=== PATIENT | female | born 1990 | race Caucasian/White ===

== ENCOUNTER 2017-08-01 21:41 | Emergency (ER) | payer BC, OTHER ==
--- NOTE | 2017-08-01 23:31 | RADIOLOGY REPORT (SQ) ---
EXAM DESCRIPTION: HAND RIGHT 3 VIEWS COMPLETED DATE/TIME: 08/01/2017 11:09 pm REASON FOR STUDY: pain COMPARISON: None. EXAM PARAMETERS: NUMBER OF VIEWS: Three views. TECHNIQUE: AP, lateral and oblique radiographic images acquired of the right hand. LIMITATIONS: None. FINDINGS: MINERALIZATION: Normal. BONES: No acute fracture or dislocation. No worrisome bone lesions. JOINTS: No effusions. SOFT TISSUES: No soft tissue swelling. No foreign body. OTHER: No other significant finding. IMPRESSION: NEGATIVE STUDY OF THE RIGHT HAND. NO RADIOGRAPHIC EVIDENCE OF ACUTE INJURY. TECHNICAL DOCUMENTATION: JOB ID: [id number] [employer]- All Rights Reserved Reading location - IP/workstation name: [email or web address]
--- NOTE | 2017-08-01 23:31 | RADIOLOGY REPORT (SQ) ---
EXAM DESCRIPTION: WRIST RIGHT 3 VIEWS COMPLETED DATE/TIME: 08/01/2017 11:09 pm REASON FOR STUDY: pain COMPARISON: None. NUMBER OF VIEWS: Three views. TECHNIQUE: AP, lateral, and oblique radiographic images acquired of the right wrist. LIMITATIONS: None. FINDINGS: MINERALIZATION: Normal. BONES: No acute fracture or dislocation. No worrisome bone lesions. Normal alignment. SOFT TISSUES: No soft tissue swelling. No foreign body. OTHER: No other significant finding. IMPRESSION: NEGATIVE STUDY OF THE RIGHT WRIST. NO RADIOGRAPHIC EVIDENCE OF ACUTE INJURY. TECHNICAL DOCUMENTATION: JOB ID: [id number] [employer]- All Rights Reserved Reading location - IP/workstation name: [email or web address]
--- NOTE | 2017-08-02 00:59 | ER Document Report ---
HPI - HPI Pain Level: 2 Notes: Patient is a 27-year-old female no significant past medical history who presents to the ED complaining of right anterior hand pain status post injury 3 days ago. Patient states that she hit a door with her hand on accident at that time. Patient states that she did not have any immediate pain, but started noticing some swelling and some pain thereafter. She has not been taking any medicines for her symptoms. The pain does not radiate. She is still able to use her hand to perform ADLs only difficulties otherwise. No other concerns or complaints. Denies any headache, fever, neck pain, URI, sore throat, chest pain , palpitations, syncope, cough, shortness of breath, wheeze, dyspnea, abdominal pain, nausea/vomiting/diarrhea, urinary retention, dysuria, hematuria, numbness/ tingling, muscle paralysis/weakness, or rash. - ROS Systems Reviewed and Negative: Yes All other systems reviewed and negative - CONSTITUTIONAL Constitutional: DENIES: Fever, Chills - MUSCULOSKELETAL Musculoskeletal: REPORTS: Extremity pain - R wrist Past Medical History - Social History Smoking Status: Unknown if Ever Smoked Family History: Reviewed & Not Pertinent Patient has suicidal ideation: No Patient has homicidal ideation: No Renal/ Medical History: Denies: Hx Peritoneal Dialysis Vertical Provider Document - CONSTITUTIONAL Agree With Documented VS: Yes Notes: PHYSICAL EXAMINATION: GENERAL: Well-appearing, well-nourished and in no acute distress. LUNGS: Breath sounds clear to auscultation bilaterally and equal. No wheezes rales or rhonchi. HEART: Regular rate and rhythm without murmurs, rubs, gallops. Musculoskeletal: Rt hand/wrist: FROM to passive/active. Strength 5+/5. N/V intact distal. + mild tenderness to the anterolateral hand. Gamekeeper negative. + mild swelling to that area as well. No scaphoid tenderness. No other bony tenderness of the hand/wrist. Extremities: No cyanosis, clubbing, or edema b/l. Peripheral pulses 2+. Capillary refill less than 3 seconds. NEUROLOGICAL: Normal speech, normal gait. Normal sensory, motor exams PSYCH: Normal mood, normal affect. SKIN: Warm, Dry, normal turgor, no rashes or lesions noted. - INFECTION CONTROL TRAVEL OUTSIDE OF THE [place] IN LAST 30 DAYS: No Course - Re-evaluation Re-evalutation: 08/02/17 00:58 Patient is an afebrile, well-hydrated, 27-year-old female who presents to the ED with right hand pain anteriorly, suspect contusion. Vitals are acceptable. PE is otherwise unremarkable for any neurovascular compromise, obvious tendon/ ligament rupture, obvious fracture/dislocation, septic joint. X-rays were unremarkable for any acute pathology. Cockup wrist splint provided today. Conservative measures otherwise for symptoms. Recheck with your PCM in 3-5 days. Consider consult orthopedic/physical therapy. Return to the ED with any worsening/concerning symptoms otherwise as reviewed discharge. Patient is in agreement. Discharge - Discharge Clinical Impression: Right hand pain Condition: Stable Disposition: HOME, SELF-CARE Instructions: Contusion ([facility]) Additional Instructions: Rest, Ice, Compression, Elevation Use splint as directed Tylenol/ibuprofen as needed Light stretches daily Strength exercises as able Moist heat and massage may help F/u with your PCP in 3-5 days for a recheck Consider consult(s) with Orthopedics/physical therapy for ongoing/worsening symptoms Return to the ED with any worsening symptoms and/or development of fever, headache, chest pain, palpitations, syncope, shortness of breath, trouble breathing, abdominal pain, n/v/d, muscle weakness/paralysis, numbness/tingling, swelling, redness, or other worsening symptoms that are concerning to you. Referrals: [facility] ([facility]) [Provider Group] - Follow up as needed
[2017-08-02 01:32] VITALS: BP 103/60
== END 2017-08-02 01:31 | disposition home or self-care (01) ==
LOC: ER 21:41
DX: M79.641 Pain in right hand (principal); M79.89 Other specified soft tissue disorders; M25.531 Pain in right wrist; W22.8XXA Striking against or struck by other objects, initial encounter
CPT/HCPCS: 99283; 73130; 73110; L3908

== ENCOUNTER 2018-05-27 00:53 | Outpatient (CLI) | payer MEDICAID ==
[2018-05-27 01:36] LABS: APPEARANCE,URINE SLIGHTLY-CLOUDY; BILIRUBIN,URINE NEGATIVE (NEGATIVE); COLOR,URINE YELLOW; GLUCOSE, URINE NEGATIVE (NEGATIVE); KETONES,URINE NEGATIVE (NEGATIVE); LEUKOCYTE ESTERASE,URINE LARGE (NEGATIVE); NITRITE,URINE NEGATIVE (NEGATIVE); PROTEIN,URINE NEGATIVE (NEGATIVE); URINE SPECIFIC GRAVITY 1.011; UROBILINOGEN,URINE NEGATIVE mg/dL (<2.0)
[2018-05-27 02:04] LABS: URINE AMPHETAMINES SCREEN NEGATIVE; URINE BARBITURATES SCREEN NEGATIVE; URINE BENZODIAZEPINES SCREEN NEGATIVE; URINE COCAINE SCREEN NEGATIVE; URINE MARIJUANA (THC) SCREEN NEGATIVE; URINE METHADONE SCREEN NEGATIVE; URINE PHENCYCLIDINE SCREEN NEGATIVE
--- NOTE | 2018-05-27 03:57 | Non Stress Test Report ---
Non Stress Test Datetime Report Generated by CPN: 05/27/2018 03:57 DEMOGRAPHIC Test Number: 1 EGA NST: 38.1 INDICATION Indication for Study: Ordered by Provider Indication for Study (NST) Other: LC URINE RESULTS Urine Protein, NST: Negative Urine Ketones - NST: Negative Urine Glucose - NST: Negative Urine Blood - NST: Positive MONITORING Monitor Explained: Monitor Explained; Test Explained; Patient Verbalized Understanding Time on Monitor: 05/27/2018 03:33 Time off Monitor: 05/27/2018 03:54 NST Duration: 21 NST INTERVENTIONS NST Interventions: PO Hydration Physician Notified NST: Hair BABY A: [id number] BABY A Movement : Present Contraction Frequency : 2-4 FHR Baseline : 125 Accelerations : 15X15 Variability : Moderate 6-25bpm NST Review: Meets Criteria for Reactive NST NST Review and Verified By : BI Barba NST Results: Reactive NST REPORT Report Trigger: Send Report
== END 2018-05-27 04:05 | disposition home or self-care (01) ==
LOC: LC 00:53
PROVIDERS: ATTEND Obstetrics & Gynecology
PROC: 4A1HXCZ Monitoring of Products of Conception, Cardiac Rate, External Approach (ICD-10-PCS; principal; 2018-05-27)
DX: O47.1 False labor at or after 37 completed weeks of gestation (principal); Z3A.38 38 weeks gestation of pregnancy
CPT/HCPCS: 59025; 80307; 81005

== ENCOUNTER 2018-06-06 23:16 | Inpatient (IN) | payer MEDICAID ==
[2018-06-06 23:49] LABS: APPEARANCE,URINE SLIGHTLY-CLOUDY; BILIRUBIN,URINE NEGATIVE (NEGATIVE); COLOR,URINE YELLOW; GLUCOSE, URINE NEGATIVE (NEGATIVE); KETONES,URINE 80 mg/dL (NEGATIVE); LEUKOCYTE ESTERASE,URINE MODERATE (NEGATIVE); NITRITE,URINE NEGATIVE (NEGATIVE); PROTEIN,URINE NEGATIVE (NEGATIVE); URINE SPECIFIC GRAVITY 1.021
[2018-06-07 00:11] LABS: URINE AMPHETAMINES SCREEN NEGATIVE; URINE BARBITURATES SCREEN NEGATIVE; URINE BENZODIAZEPINES SCREEN NEGATIVE; URINE COCAINE SCREEN NEGATIVE; URINE MARIJUANA (THC) SCREEN NEGATIVE; URINE METHADONE SCREEN NEGATIVE; URINE PHENCYCLIDINE SCREEN NEGATIVE
[2018-06-07] MEDS ORDERED: RINGERS SOLUTION,LACTATED 1,000 ML IV PRN (00:43)
[2018-06-07] MEDS ORDERED: OXYTOCIN 10 UNIT/ML VIAL ONE (00:47)
[2018-06-07] MEDS ORDERED: MISOPROSTOL 0.2 MG TABLET ONE (00:47)
[2018-06-07] MEDS ORDERED: LIDOCAINE 1% INJ-PF (10 MG/ML) 30 ML SDV ONE (00:48)
[2018-06-07] MEDS ORDERED: OXYTOCIN/NORMAL SALINE 20 UNIT/1,000 ML RTUINJ ONE (00:48)
[2018-06-07] MEDS ORDERED: FENTANYL/BUPIVACAINE/NS/PF 300 MCG/150 ML RTUINJ EPI ONE (00:50)
[2018-06-07] MEDS ORDERED: BUPIVACAINE HCL 0.25 % INJ/PF (2.5 MG/1 ML) 30 ML VIAL ONE (00:50)
[2018-06-07] MEDS ORDERED: EPHEDRINE SULFATE INJ 50 MG/1 ML AMPULE ONE (00:50)
[2018-06-07 01:00] LABS: ABSOLUTE BASOPHILS # (AUTO) 0.1 10^3/uL (0.0-0.2); ABSOLUTE EOSINOPHILS # (AUTO) 0.1 10^3/uL (0.0-0.6); ABSOLUTE LYMPHOCYTES (AUTO) 2.1 10^3/uL (0.5-4.7); ABSOLUTE MONOCYTES (AUTO) 0.7 10^3/uL (0.1-1.4); ABSOLUTE NEUT (AUTO) 9.4 10^3/uL (1.7-8.2); BASOPHILS % (AUTO) 0.5 % (0-2); EOSINOPHILS % (AUTO) 0.4 % (0-6); HEMOGLOBIN 10.3 g/dL (12.0-15.5); LYMPHOCYTES % (AUTO) 17.3 % (13-45); MEAN CORPUSCULAR HEMOGLOBIN 26.9 pg (27.0-33.4); MEAN CORPUSCULAR HGB CONC 33.4 g/dL (32.0-36.0); MEAN CORPUSCULAR VOLUME 81 fl (80-97); MONOCYTES % (AUTO) 5.6 % (3-13); PLATELET COUNT 201 10^3/uL (150-450); RED BLOOD COUNT 3.84 10^6/uL (3.72-5.28); RED CELL DISTRIBUTION WIDTH 22.2 % (11.5-14.0); SEGMENTED NEUTROPHILS % (AUTO) 76.2 % (42-78); TOTAL CELLS COUNTED % (AUTO) 100 %; WHITE BLOOD COUNT 12.4 10^3/uL (4.0-10.5)
--- NOTE | 2018-06-07 03:13 | Admission Physical ---
Datetime Report Generated by CPN: 06/07/2018 03:13 CURRENT ADMISSION Chief Complaint: Uterine Contractions Indication for Induction: Not Applicable Admit Impression : Term, Intrauterine ; Active Labor Admit Plan: Admit to Unit; Initiate Labor Protocol ALLERGIES Medication Allergies: Yes Medication Allergies: diphenhydramine (06/06/2018); nickel (06/06/2018) Latex: Unknown OBSTETRICAL HISTORY EDC: 06/09/2018 00:00 : 3 Para: 2 Term: 2 : 0 SAB: 0 IAB: 0 Ectopic: 0 Livin Cesareans: 0 VBACs: 0 Multiple Births: 0 Gestational Diabetes: No Rh Sensitization: No Incompetent Cervix: No MARYANNE: No Infertility: No ART Treatment: No Uterine Anomaly: No IUGR: No Hx Previous C/S: No Macrosomia: No Hx Loss/Stillborn: No PIH: No Hx : No Placenta Previa/Abruption: No Depression/PP Depression: Yes PTL/PROM: No Post Hemorrhage: No Current Procedures: Ultrasound Obstetrical History Comments: G1- 2014 at 39 weeks, 8lbs 3oz male G2- 2017 at 41 weeks, 8lbs 11oz male G3- current SEE RECORDS Alcohol: No Marijuana : No Cocaine: No Other Illicit Drugs: No Cigarettes: Former Smoker. [id number] MEDICAL HISTORY Diabetes: No Blood Transfusion: No Pulmonary Disease (Asthma, TB): No Breast Disease: No Hypertension: No Medical Pathologist Surgery: No Heart Disease: No Hosp/Surgery: No Autoimmune Disorder: No Anesthetic Complications: No Kidney Disease: No Abnormal Pap Smear: No Neuro/Epilepsy: No Psychiatric Disorders: No Other Medical Diseases: No Hepatitis/Liver Disease: No Significant Family History: No Varicosities/Phlebitis: No Trauma/Violence : No Thyroid Dysfunction: No Medical History Comments: Exercise Induced Asthma, Anemia, hx of depression INFECTIOUS HISTORY Gonorrhea: No Genital Herpes: No Chlamydia: No Tuberculosis: No Syphilis: No Hepatitis: No HIV/AIDS Exposure: No Rash or Viral Illness: No HPV: No PHYSICAL EXAM General: Normal HEENT: Normal Neurologic: Normal Thyroid: Normal Heart: Normal Lungs: Normal Breast: Normal Back: Normal Abdomen: Normal Genitourinary Exam: Normal Extremities: Normal DTRs: Normal Pelvic Type: Adequate Vital Signs: Reviewed VAGINAL EXAM Dilatation: 5 Effacement: 80 Station: -1 MEMBRANES Pooling: Negative Membranes: Intact FETUS A EGA: 39.4 Monitoring: External US FHR- Baseline: 130 Variability: Moderate 6-25bpm Accelerations: 15X15 Decelerations: None FHR Category: Category I Estimated Weight (gm): 3500 Presentation: Vertex PLANS FOR LABOR AND DELIVERY Labor and Delivery: None Pain Management: Epidural Feeding Preference: Breast Benefit of Breast Feed Discussed: Yes Circumcision: N/A INFORMED CONSENT Signature: with User ID: Mario
[2018-06-07] MEDS ORDERED: OXYTOCIN/NORMAL SALINE 20 UNIT/1,000 ML RTUINJ IV PRN (03:18)
[2018-06-07] MEDS ORDERED: DIPHENHYDRAMINE HCL 25 MG CAPSULE PO PRN (03:18)
[2018-06-07] MEDS ORDERED: PROMETHAZINE HCL 25 MG TABLET PO PRN (03:18)
[2018-06-07] MEDS ORDERED: PROMETHAZINE HCL INJ 25 MG/1 ML VIAL IV PRN (03:18)
[2018-06-07] MEDS ORDERED: BENZOCAINE/MENTHOL AEROSOL SPRAY 56 ML TOP PRN (03:18)
[2018-06-07] MEDS ORDERED: PROMETHAZINE HCL 25 MG SUPP.RECT PR PRN (03:18)
[2018-06-07] MEDS ORDERED: DIPH/PERTUSS(ACELL)/TETANUS VAC/PF 0.5 ML SYR (>=10YO) IM PRN (03:18)
[2018-06-07] MEDS ORDERED: NA PHOS,M-B/NA PHOS,DI-BA (ADULT) 133 ML ENEMA PR PRN (03:18)
[2018-06-07] MEDS ORDERED: MEASLES,MUMPS&RUBELLA VACC/PF 0.5 ML VIAL SUBCUT PRN (03:18)
[2018-06-07] MEDS ORDERED: DIBUCAINE 1% OINTMENT 56 GM TP PRN (03:18)
[2018-06-07] MEDS ORDERED: ACETAMINOPHEN WITH CODEINE #3 TABLET PO PRN ×2 (03:18)
[2018-06-07] MEDS ORDERED: ACETAMINOPHEN 650 MG SUPP.RECT PR PRN (03:18)
[2018-06-07] MEDS ORDERED: MAGNESIUM HYDROXIDE SUSP 30 ML UDCUP PO PRN (03:18)
[2018-06-07] MEDS ORDERED: ZOLPIDEM TARTRATE 5 MG TABLET PO PRN (03:18)
[2018-06-07] MEDS ORDERED: PSEUDOEPHEDRINE HCL 30 MG TABLET PO PRN (03:18)
[2018-06-07] MEDS ORDERED: GLYCERIN/WITCH HAZEL LEAF 1 EACH MED..PAD TP PRN (03:18)
--- NOTE | 2018-06-07 03:26 | Warning Signs in Babies ---
VOD Warning Signs Datetime Report Generated by [facility]: 06/07/2018 03:26 VOD#608 -Warning Signs in Babies: Needs to be viewed. (05/27/2018 00:58:Susy Blair RN)
--- NOTE | 2018-06-07 04:11 | Delivery Summary ---
Del Sum A-C Datetime Report Generated by CPN: 06/07/2018 04:11 DELIVERY PERSONNEL DELIVERY PERSONNEL: [id number] Delivery Doctor:: Adriana Bermeo MD Labor and Delivery Nurse:: Susy Blair RNemissions technician Nurse:: Sydney Sow RN Bar Examiner:: Ailin Behzad, RN MATERNAL INFORMATION Delivery Anesthesia: Epidural Medications After Delivery: Pitocin Drip 20 Units/1000ml NSS Estimated Blood Loss (ml): 100 Maternal Complications: None LABOR SUMMARY EDC: 06/09/2018 00:00 No. Babies in Womb: 1 Attempted: No Labor Anesthesia: Epidural LABOR INFORMATION Reason for Induction: Not Applicable Onset of Labor: 06/06/2018 20:45 Complete Dilatation: 06/07/2018 02:56 Oxytocin: N/A Group B Beta Strep: Negative Steroids Given: None Reason Steroids Not Administered: Not Applicable MEMBRANES Membranes Rupture Method: Spontaneous Rupture of Membranes: 06/07/2018 02:55 Length of Rupture (hr): 0.15 Amniotic Fluid Color: Clear Amniotic Fluid Amount: Small Amniotic Fluid Odor: Normal STAGES OF LABOR Stage 1 hr: 6 Stage 1 min: 11 Stage 2 hr: 0 Stage 2 min: 8 Stage 3 hr: 0 Stage 3 min: 4 Total Time in Labor hr: 6 Total Time in Labor min: 23 VAGINAL DELIVERY Episiotomy: None Laceration #1: None Laceration Extension #1: N/A Laceration Repair: Not Applicable Sponge Count Correct: N/A CSECTION DELIVERY Primary Indication: N/A Secondary Indication: N/A CSection Incision: N/A BABY A INFORMATION Infant Delivery Date/Time: 06/07/2018 03:04 Method of Delivery: Vaginal Born in Route : No : N/A Forceps: N/A Vacuum Extraction: N/A Shoulder Dystocia : No PRESENTATION/POSITION BABY A Presentation: Cephalic Cephalic Presentation: Vertex Vertex Position: OA Breech Presentation: N/A PLACENTA INFORMATION BABY A Placenta Delivery Time : 06/07/2018 03:08 Placenta Method of Delivery: Spontaneous Placenta Status: Delivered SCORES BABY A Heart Rate 1 min: >100 bpm Resp Effort 1 min: Good Cry Reflex Irritability 1 min: Cough or Sneeze or Pulls Away Muscle Tone 1 min: Active Motion Color 1 min: Body Guy, Extremities Blue Resuscitation Effort 1 min: Tactile Stimulation SCORE 1 MIN: 9 Heart Rate 5 min: >100 bpm Resp Effort 5 min: Good Cry Reflex Irritability 5 min: Cough or Sneeze or Pulls Away Muscle Tone 5 min: Active Motion Color 5 min: Body Guy, Extremities Blue Resuscitation Effort 5 min: Tactile Stimulation SCORE 5 MIN: 9 INFORMATION BABY A Gestational Age at Delivery: 39.5 Gestational Status: Full Term- 39- 40.6 Weeks Infant Outcome : Liveborn Condition : Stable Sex: Female IDENTIFICATION BABY A Infant Verification Date/Time: 06/07/2018 03:55 ID Band Number: [id number] Mother's Name Verified: Yes RN Verifying Infant: Concha, RN Additional Verifying Personnel: B. Ring, RN WEIGHT/LENGTH BABY A Birthweight (gm): 3464 Infant Weight (lb): 7 Weight (oz): 10 Infant Length (in): 20.00 Length (cm): 50.80 CORD INFORMATION BABY A No. Cord Vessels: 3 Nuchal Cord : N/A Cord Blood Taken: Yes-For Eval (Mom's Blood Type - or O+) Suction: Mouth ASSESSMENT BABY A Skin to Skin: Yes Skin to Skin Time (min): 30+ BABY B INFORMATION : N/A SIGNATURES Signature: with User ID: Mario
[2018-06-07] MEDS: IBUPROFEN 800 MG TABLET PO SCH ×3 (05:40→22:16)
[2018-06-07] MEDS: DOCUSATE SODIUM 100 MG CAPSULE PO SCH ×2 (10:17→17:18)
[2018-06-07] MEDS: FERROUS SULFATE 325 MG TABLET PO SCH ×2 (10:17→17:18)
[2018-06-07] MEDS: FAMOTIDINE 20 MG TABLET PO SCH ×2 (10:17→22:15)
[2018-06-07] MEDS: PRENATAL VITAMIN W DHA CAPSULE PO SCH (10:17)
[2018-06-07] MEDS: SENNOSIDES/DOCUSATE 8.6-50 MG 1 EACH TABLET PO SCH (10:17)
--- NOTE | 2018-06-07 11:41 | PDOC PROGRESS REPORT ---
Subjective-OB Progress Note for:: 06/07/18 Subjective: Pt doing well. No concerns. She reports light bleeding, reg diet and voiding without difficulty. Physical Exam (OB) Vital Signs: Temp Pulse Resp BP Pulse Ox 98.4 F 77 18 102/57 L 98 06/07/18 08:17 06/07/18 08:17 06/07/18 08:17 06/07/18 08:17 06/07/18 08:17 Intake & Output 06/06/18 06/07/18 06/08/18 06:59 06:59 06:59 Weight 67.2 kg - Lochia Lochia Amount: Small 10-25 ml Lochia Color: Rubra/Red - Abdomen Description: Soft Hernia Present: No Fundal Description: Firm, Midline Fundal Height: u/3 - u/4 Objective-Diagnostic Laboratory: 06/07/18 00:50 06/06/18 06/07/18 06/07/18 23:22 00:50 00:50 WBC 12.4 H RBC 3.84 Hgb 10.3 L Hct 31.0 L MCV 81 MCH 26.9 L MCHC 33.4 RDW 22.2 H Plt Count 201 Seg Neutrophils % 76.2 Lymphocytes % 17.3 Monocytes % 5.6 Eosinophils % 0.4 Basophils % 0.5 Absolute Neutrophils 9.4 H Absolute Lymphocytes 2.1 Absolute Monocytes 0.7 Absolute Eosinophils 0.1 Absolute Basophils 0.1 Urine Color YELLOW Urine Appearance SLIGHTLY-CLOUDY Urine pH 6.0 Ur Specific [place] 1.021 Urine Protein NEGATIVE Urine Glucose (UA) NEGATIVE Urine Ketones 80 H Urine Blood NEGATIVE Urine Nitrite NEGATIVE Ur Leukocyte Esterase MODERATE H Blood Type O POSITIVE Antibody Screen NEGATIVE Assessment and Plan(PN) - Assessment and Plan (1) Vaginal delivery Is this a current diagnosis for this admission?: Yes - Time Spent with Patient Time with patient: Less than 15 minutes Medications reviewed and adjusted accordingly: Yes - Disposition Anticipated Discharge: Home Within: within 24 hours
[2018-06-08] MEDS: IBUPROFEN 800 MG TABLET PO SCH ×2 (05:19→14:32)
[2018-06-08 08:02] LABS: ABSOLUTE EOSINOPHILS # (AUTO) 0.1 10^3/uL (0.0-0.6); ABSOLUTE MONOCYTES (AUTO) 0.6 10^3/uL (0.1-1.4); ABSOLUTE NEUT (AUTO) 7.1 10^3/uL (1.7-8.2); BASOPHILS % (AUTO) 0.5 % (0-2); EOSINOPHILS % (AUTO) 1.5 % (0-6); HEMATOCRIT 28.6 % (36.0-47.0); HEMOGLOBIN 9.6 g/dL (12.0-15.5); LYMPHOCYTES % (AUTO) 20.4 % (13-45); MEAN CORPUSCULAR HEMOGLOBIN 27.2 pg (27.0-33.4); MEAN CORPUSCULAR HGB CONC 33.5 g/dL (32.0-36.0); MEAN CORPUSCULAR VOLUME 81 fl (80-97); MONOCYTES % (AUTO) 6.4 % (3-13); PLATELET COUNT 178 10^3/uL (150-450); RED BLOOD COUNT 3.52 10^6/uL (3.72-5.28); RED CELL DISTRIBUTION WIDTH 22.2 % (11.5-14.0); SEGMENTED NEUTROPHILS % (AUTO) 71.2 % (42-78); TOTAL CELLS COUNTED % (AUTO) 100 %
[2018-06-08] MEDS: DOCUSATE SODIUM 100 MG CAPSULE PO SCH ×2 (10:14→18:46)
[2018-06-08] MEDS: PRENATAL VITAMIN W DHA CAPSULE PO SCH (10:14)
[2018-06-08] MEDS: FERROUS SULFATE 325 MG TABLET PO SCH ×2 (10:14→18:45)
[2018-06-08] MEDS: SENNOSIDES/DOCUSATE 8.6-50 MG 1 EACH TABLET PO SCH (10:16)
[2018-06-08] MEDS: FAMOTIDINE 20 MG TABLET PO SCH (10:16)
--- NOTE | 2018-06-08 10:27 | PDOC PROGRESS REPORT ---
Subjective-OB Progress Note for:: 06/08/18 Subjective: Pt doing well, no concerns. She reports light bleeding, reg diet and voiding without difficulty. Physical Exam (OB) Vital Signs: Temp Pulse Resp BP Pulse Ox 98.4 F 81 16 102/72 100 06/07/18 08:17 06/08/18 08:20 06/08/18 08:20 06/08/18 08:20 06/08/18 08:20 Intake & Output 06/07/18 06/08/18 06/09/18 06:59 06:59 06:59 Intake Total 300 Balance 300 Weight 67.2 kg - Lochia Lochia Amount: Scant < 10 ml Lochia Color: Rubra/Red - Abdomen Description: Soft Hernia Present: No Fundal Description: Firm, Midline Fundal Height: u/u - u/2 Objective-Diagnostic Laboratory: 06/08/18 07:53 06/08/18 07:53 WBC 10.0 RBC 3.52 L Hgb 9.6 L Hct 28.6 L MCV 81 MCH 27.2 MCHC 33.5 RDW 22.2 H Plt Count 178 Seg Neutrophils % 71.2 Lymphocytes % 20.4 Monocytes % 6.4 Eosinophils % 1.5 Basophils % 0.5 Absolute Neutrophils 7.1 Absolute Lymphocytes 2.0 Absolute Monocytes 0.6 Absolute Eosinophils 0.1 Absolute Basophils 0.0 Assessment and Plan(PN) - Assessment and Plan (1) Vaginal delivery Is this a current diagnosis for this admission?: Yes - Time Spent with Patient Time with patient: Less than 15 minutes Medications reviewed and adjusted accordingly: Yes - Disposition Anticipated Discharge: Home Within: within 24 hours
--- NOTE | 2018-06-08 16:52 | PDOC DISCHARGE SUMMARY ---
Final Diagnosis Discharge Date: 06/08/18 - Final Diagnosis (1) Vaginal delivery Is this a current diagnosis for this admission?: Yes Discharge Data - Discharge Medication Home Medications: Vit,Calc76/Iron/Folic [Pnv 29-1 Tablet] 1 each PO 06/06/18 Reason(s) for Admission: Onset of Labor Procedures: NST Intrapartum Procedure(s): Spontaneous Vaginal Delivery - Diagnosis Test Laboratory: Temp Pulse Resp BP Pulse Ox 98.4 F 81 16 102/72 100 06/08/18 12:28 06/08/18 12:28 06/08/18 12:28 06/08/18 12:28 06/08/18 12:28 06/06/18 06/07/18 06/08/18 23:22 00:50 07:53 RBC 3.84 3.52 L Hgb 10.3 L 9.6 L Hct 31.0 L 28.6 L Urine Opiates Screen NEGATIVE - Discharge information/Instructions Discharge Activity: Balance Activity w/Rest, No Lifting Over 10 Pounds, No Lifting/Push/Pulling, Pelvic Rest, No tub bath Discharge Diet: Regular Disposition: HOME, SELF-CARE Follow up with: [facility] in: 4, Weeks
[2018-06-09 00:26] VITALS: BP 116/74
[2018-06-10 09:48] LABS: HEPATITS B SURFACE ANTIGEN Negative (Negative)
== END 2018-06-08 22:39 | disposition home or self-care (01) | DRG 807 ==
LOC: LC 23:16 → LR 06-07 00:44 → 2S 06-07 05:20
PROVIDERS: ADMIT Obstetrics & Gynecology; ATTEND Obstetrics & Gynecology
PROC: 10E0XZZ Delivery of Products of Conception, External Approach (ICD-10-PCS; principal; 2018-06-07)
DX: O99.52 Diseases of the respiratory system complicating childbirth (principal); Z37.0 Single live birth; J45.909 Unspecified asthma, uncomplicated; Z3A.39 39 weeks gestation of pregnancy
CPT/HCPCS: 36415; 80307; 81005; 84112; 85025; 86592; 86850; 86900; 86901; 87340; J2590; J3010; J3490

== ENCOUNTER 2019-02-11 07:17 | Day surgery (SDC) | payer BC, MEDICAID ==
[~2019-02-11 07:17] MED LIST: FENTANYL CITRATE INJ/PF 100 MCG/2 ML AMPUL ONE; MIDAZOLAM 2 MG/2 ML INJ ONE; PROPOFOL INJ 200 MG/20 ML VIAL IV ONE
[2019-02-11] MEDS ORDERED: CEFAZOLIN INJ 1 GM VIAL ONE (07:41)
[2019-02-11] MEDS ORDERED: CEFAZOLIN INJ 1 GM VIAL IV PRN (07:42)
[2019-02-11 08:15] LABS: APPEARANCE,URINE SLIGHTLY-CLOUDY; BILIRUBIN,URINE NEGATIVE (NEGATIVE); COLOR,URINE YELLOW; GLUCOSE, URINE NEGATIVE (NEGATIVE); KETONES,URINE NEGATIVE (NEGATIVE); LEUKOCYTE ESTERASE,URINE NEGATIVE (NEGATIVE); NITRITE,URINE NEGATIVE (NEGATIVE); PROTEIN,URINE NEGATIVE (NEGATIVE); URINE SPECIFIC GRAVITY 1.021; UROBILINOGEN,URINE NEGATIVE mg/dL (<2.0)
[2019-02-11 08:44] LABS: ABSOLUTE BASOPHILS # (AUTO) 0.1 10^3/uL (0.0-0.2); ABSOLUTE EOSINOPHILS # (AUTO) 0.1 10^3/uL (0.0-0.6); ABSOLUTE LYMPHOCYTES (AUTO) 2.6 10^3/uL (0.5-4.7); ABSOLUTE MONOCYTES (AUTO) 0.4 10^3/uL (0.1-1.4); ABSOLUTE NEUT (AUTO) 3.6 10^3/uL (1.7-8.2); EOSINOPHILS % (AUTO) 1.4 % (0-6); HEMATOCRIT 36.5 % (36.0-47.0); HEMOGLOBIN 12.6 g/dL (12.0-15.5); LYMPHOCYTES % (AUTO) 38.3 % (13-45); MEAN CORPUSCULAR HEMOGLOBIN 29.9 pg (27.0-33.4); MEAN CORPUSCULAR HGB CONC 34.5 g/dL (32.0-36.0); MEAN CORPUSCULAR VOLUME 87 fl (80-97); MONOCYTES % (AUTO) 5.7 % (3-13); PLATELET COUNT 323 10^3/uL (150-450); RED BLOOD COUNT 4.21 10^6/uL (3.72-5.28); RED CELL DISTRIBUTION WIDTH 14.3 % (11.5-14.0); SEGMENTED NEUTROPHILS % (AUTO) 53.6 % (42-78); TOTAL CELLS COUNTED % (AUTO) 100 %; WHITE BLOOD COUNT 6.8 10^3/uL (4.0-10.5)
[2019-02-11] MEDS ORDERED: MIDAZOLAM 2 MG/2 ML INJ ONE (09:33)
[2019-02-11] MEDS ORDERED: MORPHINE SULFATE 10 MG/ML INJ IV PRN (11:50)
[2019-02-11] MEDS ORDERED: ONDANSETRON HCL INJ/PF 4 MG/2 ML SDV IV PRN (11:50)
[2019-02-11] MEDS ORDERED: MEPERIDINE HCL/PF INJ 25 MG/1 ML DISP.SYRIN IV PRN (11:50)
[2019-02-11] MEDS ORDERED: FENTANYL CITRATE INJ/PF 100 MCG/2 ML AMPUL IV PRN ×3 (11:50)
[2019-02-11] MEDS ORDERED: OXYCODONE-ACETAMINOPHEN 5-325 MG TABLET PO PRN ×2 (11:50)
--- NOTE | 2019-02-11 12:12 | Operative Report ---
Operative Report DATE OF SURGERY: 02/11/19 PREOPERATIVE DIAGNOSIS: missed POSTOPERATIVE DIAGNOSIS: same OPERATION: suction D&C SURGEON: DAWNA MCKEON 1ST SILVICULTURE PROFESSOR: REMY MAJOR ANESTHESIA: LMAC TISSUE REMOVED OR ALTERED: Products of conception COMPLICATIONS: None ESTIMATED BLOOD LOSS: 50 cc INTRAOPERATIVE FINDINGS: Uterus sounded to approximately 8 cm, moderate amount of tissue obtained PROCEDURE: Patient was taken to the operating room prepared and draped in a normal sterile fashion in a dorsal lithotomy position. An in and out cath was performed of approximately 100 cc of clear urine. Sterile speculum was placed into the vagina and the cervix was prepped with Betadine and grasped on the anterior lip with a single-tooth tenaculum. The uterus was sounded to the above findings. The cervix was dilated to accommodate an 8 mm curved curette. The curved curette was passed x3 under suction and a small amount of decidual type tissue was removed. Curettage was performed using Kevorkian curette. Good great was noted 360 degrees around. More pass with the suction curette no further tissue. The procedure was then concluded Metzenbaums were removed sponge lap and needle counts were correct x2. She was taken to recovery in stable condition
[2019-02-11] MEDS ORDERED: IBUPROFEN 800 MG TABLET ONE (12:58)
[2019-02-11] MEDS ORDERED: ONDANSETRON HCL INJ/PF 4 MG/2 ML SDV ONE (14:17)
[2019-02-11] MEDS ORDERED: DEXAMETHASONE SOD PHOSPHATE INJ 4 MG/1 ML VIAL ONE (14:17)
[2019-02-11] MEDS ORDERED: KETOROLAC TROMETHAMINE 60 MG/2 ML SDV ONE (14:17)
[2019-02-11 20:37] VITALS: BP 109/60
== END 2019-02-11 13:20 | disposition home or self-care (01) ==
LOC: OROUT 07:17
PROVIDERS: ATTEND Obstetrics & Gynecology
DX: O02.1 Missed abortion (principal); J45.909 Unspecified asthma, uncomplicated; Z88.2 Allergy status to sulfonamides; Z88.8 Allergy status to other drugs, medicaments and biological substances; F17.210 Nicotine dependence, cigarettes, uncomplicated
CPT/HCPCS: 36415; 85025; 81025; 81001; 88305 ×2; 01965; 59820; J2250; J0690; J1100; J1885; J3010; J2405; J2704; 1965

== ENCOUNTER 2019-02-23 00:17 | Emergency (ER) | payer BC ==
--- NOTE | 2019-02-23 01:08 | ER Document Report ---
ED General - General Chief Complaint: Vaginal Bleeding Stated Complaint: VAGINAL BLEEDING Time Seen by Provider: 02/23/19 00:35 TRAVEL OUTSIDE OF THE [place] IN LAST 30 DAYS: No - HPI Notes: This is a 28-year-old female, aborta 1 that presents complaining of sudden onset right lower quadrant pain followed by heavy vaginal bleeding. Patient states that she had a miscarriage that required a D&C approximately 2-1/2 weeks ago. Patient states she had minimal brown-tinged vaginal spotting since the D& C. Patient states she was getting ready for bed and felt a sharp and sudden onset right lower quadrant pain followed by a amount of bright red blood enough to "fill up to soda cans". Patient denies history of coagulopathy or bleeding disorder. Patient states she has been abstinent since the D&C was done and is supposed to follow-up with Dr. Mckeon with [employer]ITTER HEL[facility] on 02/26/2019. - Related Data Allergies/Adverse Reactions: diphenhydramine [From Benadryl] Allergy (Verified 02/11/19 07:44) nickel Allergy (Verified 02/11/19 07:44) Sulfa (Sulfonamide Antibiotics) Allergy (Verified 02/11/19 07:44) Past Medical History - General Information source: Patient - Social History Smoking Status: Never Smoker Family History: Reviewed & Not Pertinent Patient has suicidal ideation: No Patient has homicidal ideation: No - Past Medical History Cardiac Medical History: Denies: Hx Coronary Artery Disease, Hx Heart Attack, Hx Hypertension Pulmonary Medical History: Reports: Hx Asthma - SPORT INDUCED Denies: Hx Bronchitis, Hx COPD, Hx Pneumonia Neurological Medical History: Denies: Hx Cerebrovascular Accident, Hx Seizures Renal/ Medical History: Denies: Hx Peritoneal Dialysis Musculoskeletal Medical History: Denies Hx Arthritis Past Surgical History: Reports: Hx Gynecologic Surgery - d/c - Immunizations Hx Diphtheria, Pertussis, Tetanus Vaccination: - UNKNOWN Review of Systems - Review of Systems Constitutional: No symptoms reported EENT: No symptoms reported Cardiovascular: No symptoms reported Respiratory: No symptoms reported Gastrointestinal: No symptoms reported Genitourinary: No symptoms reported Female Genitourinary: Vaginal bleeding Musculoskeletal: No symptoms reported Skin: No symptoms reported Hematologic/Lymphatic: No symptoms reported Neurological/Psychological: No symptoms reported -: Yes All other systems reviewed and negative Physical Exam - Vital signs Vitals: Temp Pulse Resp BP Pulse Ox 98 F 89 18 134/80 H 100 02/23/19 00:21 02/23/19 00:21 02/23/19 00:21 02/23/19 00:21 02/23/19 00:21 - Notes Notes: PHYSICAL EXAMINATION: GENERAL: Well-appearing, well-nourished and in no acute distress. HEAD: Atraumatic, normocephalic. EYES: Pupils equal round and reactive to light, extraocular movements intact, sclera anicteric, conjunctiva are normal. ENT: nares patent, oropharynx clear without exudates. Moist mucous membranes. NECK: Normal range of motion, supple without lymphadenopathy LUNGS: Breath sounds clear to auscultation bilaterally and equal. No wheezes rales or rhonchi. HEART: Regular rate and rhythm without murmurs ABDOMEN: Soft, nontender, normoactive bowel sounds. No guarding, no rebound. No masses appreciated. EXTREMITIES: Normal range of motion, no pitting or edema. No cyanosis. NEUROLOGICAL: No focal neurological deficits. Moves all extremities spontaneously and on command. PSYCH: Normal mood, normal affect. SKIN: Warm, Dry, normal turgor, no rashes or lesions noted. Course - Vital Signs Vital signs: Temp Pulse Resp BP Pulse Ox 98 F 89 18 134/80 H 100 02/23/19 00:21 02/23/19 00:21 02/23/19 00:21 02/23/19 00:21 02/23/19 00:21 - Laboratory Result Diagrams: 02/23/19 00:55 02/23/19 00:55 Laboratory results interpreted by me: 02/23/19 02/23/19 00:55 00:55 Hct 35.9 L Serum HCG, Qual POSITIVE H - Diagnostic Test Radiology reviewed: Reports reviewed - Consults DR HENRY Time consulted: 02:41 Reason for consultation: 02/23/19 02:42 VAGINAL BLEEDING POST D&C Consulted provider: other - Dr. Henry recommended giving the patient 10 mg of Provera now and having her follow-up with her CIRCULAR KNITTER HELPER, Dr. Mckeon, later today, 02/23/2019. Discharge - Discharge Clinical Impression: Dysfunctional uterine bleeding Condition: Good Disposition: HOME, SELF-CARE Instructions: Dysfunctional Uterine Bleeding ([facility]) Additional Instructions: Return to the Emergency Department without delay if any worse. BE CERTAIN TO FOLLOW UP WITH DR. MCKEON TODAY, 02/23/19. HOME CARE INSTRUCTIONS & INFORMATION: Thank you for choosing us for your medical needs. We hope you're satisfied with the care you received. After you leave, you must properly care for your problem and, at the same time, observe its progress. Any condition can change. Some illnesses can change rapidly over hours or days. If your condition worsens, return to the Emergency Department or see your physician promptly. ABOUT YOUR X-RAYS AND EKG'S: If you had an EKG or X-rays taken, they have been read by the Emergency Physician. The X-rays and EKG's will also be read by a Radiologist or Toddler Guide within 24 hours. If discrepancies are noted, you will be notified by telephone. Please be certain the ED has a correct telephone number & address where you can be reached. Also, realize that some fractures or abnormalities do not show up on initial X-rays. If your symptoms continue, see your physician. ABOUT YOUR LABORATORY TEST: If you had laboratory tests, the results have been reviewed by the Emergency Physician. Some test results (for example cultures) may not be available for several days. You will be contacted if any test result shows you need additional treatment. Please be certain the ED has a correct telephone number and address where you can be reached. ABOUT YOUR MEDICATIONS: You will receive instructions on how to take your medicine on the prescription label you receive. Additional information may be provided by the Pharmacy. If you have questions afterwards, call the ED for clarification or further instructions. Some prescribed medications may cause drowsiness. Do not perform tasks such as driving a car or operating machinery without consulting your Pharmacist. If you feel you need a refill of pain medication, your condition will need re-evaluation. Please do not call for a refill of any medication. ABOUT YOUR SIGNATURE: Signature of this document acknowledges to followin. Understanding that you received emergency treatment and that you may be released before al medical problems are known or treated. Please be certain the ED has a correct phone number & address where you can be reached. 2. Acknowledgement that you will arrange for follow-up care as recommended. 3. Authorization for the Emergency Physician to provide information to your follow-up Physician in order to maximize your care. AT ANY TIME, IF YOUR SYMPTOMS CHANGE SIGNIFICANTLY OR WORSEN OR YOU DEVELOP NEW SYMPTOMS, RETURN TO THE EMERGENCY DEPARTMENT IMMEDIATELY FOR RE-EVALUATION. OUR GOAL IS TO PROVIDE EXCELLENT MEDICAL CARE! WE HOPE THAT WE HAVE MET YOUR EXPECTATIONS DURING YOUR EMERGENCY DEPARTMENT VISIT AND THAT YOU FEEL YOU HAVE RECEIVED EXCELLENT CARE!
[2019-02-23 01:15] LABS: ABSOLUTE BASOPHILS # (AUTO) 0.1 10^3/uL (0.0-0.2); ABSOLUTE EOSINOPHILS # (AUTO) 0.1 10^3/uL (0.0-0.6); ABSOLUTE MONOCYTES (AUTO) 0.4 10^3/uL (0.1-1.4); ABSOLUTE NEUT (AUTO) 3.9 10^3/uL (1.7-8.2); BASOPHILS % (AUTO) 0.7 % (0-2); EOSINOPHILS % (AUTO) 1.5 % (0-6); HEMATOCRIT 35.9 % (36.0-47.0); LYMPHOCYTES % (AUTO) 40.4 % (13-45); MEAN CORPUSCULAR HEMOGLOBIN 29.4 pg (27.0-33.4); MEAN CORPUSCULAR HGB CONC 33.6 g/dL (32.0-36.0); MEAN CORPUSCULAR VOLUME 88 fl (80-97); MONOCYTES % (AUTO) 5.7 % (3-13); PLATELET COUNT 252 10^3/uL (150-450); RED BLOOD COUNT 4.09 10^6/uL (3.72-5.28); RED CELL DISTRIBUTION WIDTH 13.6 % (11.5-14.0); SEGMENTED NEUTROPHILS % (AUTO) 51.7 % (42-78); TOTAL CELLS COUNTED % (AUTO) 100 %; WHITE BLOOD COUNT 7.5 10^3/uL (4.0-10.5)
[2019-02-23 01:21] LABS: ALBUMIN 4.2 g/dL (3.5-5.0); ALKALINE PHOSPHATASE 68 U/L (38-126); ANION GAP 9 (5-19); ASPARTATE AMINO TRANSFERASE 21 U/L (14-36); BILIRUBIN,DIRECT 0.1 mg/dL (0.0-0.4); BILIRUBIN,TOTAL 0.3 mg/dL (0.2-1.3); BLOOD UREA NITROGEN 13 mg/dL (7-20); CALCIUM 9.5 mg/dL (8.4-10.2); CARBON DIOXIDE 23 mmol/L (22-30); CHLORIDE 107 mmol/L (98-107); GLUCOSE 101 mg/dL (75-110); POTASSIUM 3.9 mmol/L (3.6-5.0); TOTAL PROTEIN 7.4 g/dL (6.3-8.2)
--- NOTE | 2019-02-23 02:27 | RADIOLOGY REPORT (SQ) ---
CLINICAL HISTORY: vaginal bleeding, + serum qual hcg COMPARISON: None. TECHNIQUE: US PELVIS TRANSVAGINAL on 02/23/2019 1:24 AM CHAIN FORMING MACHINE OPERATOR FINDINGS: The uterus measures 9.2 cm and contains a complex fluid collection within the endometrial cavity measuring 2.4 x 3.8 cm. Right ovary measures 2.8 x 2.5 x 2.5 cm and is normal in echotexture with patent flow. Left ovary is not seen. IMPRESSION: Indeterminate complex fluid collection within the endometrial cavity with no evidence of retained products of conception.
[2019-02-23] MEDS ORDERED: MEDROXYPROGESTERONE ACET 10 MG TABLET PO ONE (02:36)
[2019-02-23 02:56] VITALS: BP 112/69
== END 2019-02-23 02:55 | disposition home or self-care (01) ==
LOC: ER 00:17
DX: N93.8 Other specified abnormal uterine and vaginal bleeding (principal); R52 Pain, unspecified; J45.909 Unspecified asthma, uncomplicated; Z98.890 Other specified postprocedural states; Z88.8 Allergy status to other drugs, medicaments and biological substances; Z88.2 Allergy status to sulfonamides
CPT/HCPCS: 99284; 36415; 84702; 84703; 85025; 80053; 76830; 93976; J3490

== ENCOUNTER 2019-02-25 05:40 | Day surgery (SDC) | payer BC ==
[2019-02-25 06:10] LABS: APPEARANCE,URINE CLEAR; BILIRUBIN,URINE NEGATIVE (NEGATIVE); COLOR,URINE YELLOW; GLUCOSE, URINE NEGATIVE (NEGATIVE); KETONES,URINE NEGATIVE (NEGATIVE); LEUKOCYTE ESTERASE,URINE TRACE (NEGATIVE); NITRITE,URINE NEGATIVE (NEGATIVE); PROTEIN,URINE NEGATIVE (NEGATIVE); URINE SPECIFIC GRAVITY 1.018; UROBILINOGEN,URINE NEGATIVE mg/dL (<2.0)
[2019-02-25] MEDS ORDERED: DOXYCYCLINE HYCLATE INJ 100 MG VIAL ONE (06:20)
[2019-02-25] MEDS ORDERED: DOXYCYCLINE HYCLATE 100 MG in DEXTROSE 5%-WATER 250 ML IV PRN (06:30)
[2019-02-25] MEDS ORDERED: ONDANSETRON HCL INJ/PF 4 MG/2 ML SDV ONE (07:00)
[2019-02-25] MEDS ORDERED: FENTANYL CITRATE INJ/PF 100 MCG/2 ML AMPUL ONE (07:00)
[2019-02-25] MEDS ORDERED: PROPOFOL INJ 200 MG/20 ML VIAL IV ONE (07:00)
[2019-02-25] MEDS ORDERED: MIDAZOLAM 2 MG/2 ML INJ ONE (07:00)
[2019-02-25 07:08] LABS: ABSOLUTE BASOPHILS # (AUTO) 0.1 10^3/uL (0.0-0.2); ABSOLUTE EOSINOPHILS # (AUTO) 0.1 10^3/uL (0.0-0.6); ABSOLUTE LYMPHOCYTES (AUTO) 2.1 10^3/uL (0.5-4.7); ABSOLUTE MONOCYTES (AUTO) 0.3 10^3/uL (0.1-1.4); ABSOLUTE NEUT (AUTO) 3.3 10^3/uL (1.7-8.2); EOSINOPHILS % (AUTO) 2.1 % (0-6); HEMATOCRIT 31.2 % (36.0-47.0); HEMOGLOBIN 10.7 g/dL (12.0-15.5); LYMPHOCYTES % (AUTO) 35.7 % (13-45); MEAN CORPUSCULAR HEMOGLOBIN 29.9 pg (27.0-33.4); MEAN CORPUSCULAR HGB CONC 34.4 g/dL (32.0-36.0); MEAN CORPUSCULAR VOLUME 87 fl (80-97); MONOCYTES % (AUTO) 5.1 % (3-13); PLATELET COUNT 216 10^3/uL (150-450); RED BLOOD COUNT 3.58 10^6/uL (3.72-5.28); RED CELL DISTRIBUTION WIDTH 13.5 % (11.5-14.0); SEGMENTED NEUTROPHILS % (AUTO) 56.1 % (42-78); TOTAL CELLS COUNTED % (AUTO) 100 %
[2019-02-25] MEDS ORDERED: MEPERIDINE HCL/PF INJ 25 MG/1 ML DISP.SYRIN IV PRN (07:41)
[2019-02-25] MEDS ORDERED: PROMETHAZINE HCL INJ 25 MG/1 ML VIAL IV PRN (07:41)
[2019-02-25] MEDS ORDERED: FENTANYL CITRATE INJ/PF 100 MCG/2 ML AMPUL IV PRN ×3 (07:41)
[2019-02-25] MEDS ORDERED: IBUPROFEN 800 MG TABLET PO PRN (07:54)
[2019-02-25] MEDS ORDERED: RINGERS SOLUTION,LACTATED 1,000 ML IV PRN (07:54)
[2019-02-25] MEDS ORDERED: OXYCODONE-ACETAMINOPHEN 5-325 MG TABLET PO PRN ×2 (07:54)
[2019-02-25] MEDS ORDERED: KETOROLAC TROMETHAMINE INJ/PF 30 MG/1 ML SDV IV PRN (07:54)
--- NOTE | 2019-02-25 08:00 | Operative Report ---
Operative Report DATE OF SURGERY: 02/25/19 PREOPERATIVE DIAGNOSIS: Patient request suction D&C for incomplete miscarriage POSTOPERATIVE DIAGNOSIS: Same OPERATION: Suction D&C SURGEON: ABDON BRASHER ELECTROMEDICAL SERVICE ENGINEER: DIEGO HERRERA ANESTHESIA: GA TISSUE REMOVED OR ALTERED: Uterine contents COMPLICATIONS: None ESTIMATED BLOOD LOSS: 20 cc INTRAOPERATIVE FINDINGS: Uterus sounded to 10 cm before and 8 cm after the D&C, ultrasound during the case shows a retroflexed uterus. By ultrasound the uterus appears empty after the D&C. PROCEDURE: Patient was taken back to the OR and placed in supine position. General anesthesia was induced. She is placed in a dorsolithotomy position using Jean Pierre stirrups. Her perineum and vagina were prepared and draped in sterile fashion and her bladder was drained with a red rubber catheter. A weighted speculum was placed in the vagina and the anterior lip cervix was grasped with a sponge stick. Uterus was sounded to 10 cm before the case and 8 cm after the case. Cervix was easily dilated and a size 10 suction curette was used to evacuate the uterine contents. This was done under ultrasound guidance. The products could be easily seen before and could no longer be seen after the D&C. The uterus is retroflexed and this was taken under consideration during the D&C. At the end of the case all instruments were removed. She is brought out of anesthesia and taken recovery in stable condition.
--- NOTE | 2019-02-25 08:02 | Discharge Summary ---
Discharge Summary (SDC) - Discharge Final Diagnosis: Incomplete miscarriage Date of Surgery: 02/25/19 Discharge Date: 02/25/19 Condition: Good Prescriptions: Oxycodone HCl/Acetaminophen [Percocet 5-325 mg Tablet] 1 tab PO Q4HP PRN #20 tablet PRN Reason: Discharge Diet: Regular Discharge Activity: Balance Activity w/Rest, Pelvic Rest Report the Following to Your Physician Immediately: Shortness of Breath, Increase in Pain
[2019-02-25 10:11] VITALS: BP 93/54
== END 2019-02-25 09:40 | disposition home or self-care (01) ==
LOC: OROUT 05:40
PROVIDERS: ATTEND Obstetrics & Gynecology
DX: O02.1 Missed abortion (principal); J45.909 Unspecified asthma, uncomplicated; Z67.40 Type O blood, Rh positive; D64.9 Anemia, unspecified
CPT/HCPCS: 36415; 85025; 81025; 81001; 88305 ×2; 59820; J2250; J3490; J3010; J2405; J2704; 1965

== ENCOUNTER 2019-10-25 19:00 | Emergency (ER) | payer SELFPAY ==
--- NOTE | 2019-10-25 19:22 | ER Document Report ---
ED Medical Screen (RME) - General Chief Complaint: Flank Pain Stated Complaint: RIGHT FLANK PAIN Time Seen by Provider: 10/25/19 19:10 Mode of Arrival: Ambulatory Information source: Patient Notes: 29-year-old female presents to ED for right upper quadrant abdominal pain she states is severe at times. She states it does come come and go. She states she is 5 para 3. She states she had a miscarriage in December of last year and had to get 2 D&Cs because of the retained products of conception. Her last menstrual period this time was August 26 and she states she is not blee ding but she is very scared that she has a tubal . Is alert oriented respirations regular nonlabored speaking in full sentences she does not smoke she was drinking once or twice a month until she found that she was but does not drink now. She is alert oriented respirations regular nonlabored speaking in full sentences. I have greeted and performed a rapid initial assessment of this patient. A comprehensive ED assessment and evaluation of the patient, analysis of test results and completion of medical decision making process will be conducted by an additional ED providers. TRAVEL OUTSIDE OF THE [place] IN LAST 30 DAYS: No - Related Data Allergies/Adverse Reactions: diphenhydramine [From Benadryl] Allergy (Verified 02/25/19 06:33) nickel Allergy (Verified 02/25/19 06:33) Sulfa (Sulfonamide Antibiotics) Allergy (Verified 02/25/19 06:33) Past Medical History - Past Medical History Cardiac Medical History: Denies: Hx Coronary Artery Disease, Hx Heart Attack, Hx Hypertension Pulmonary Medical History: Reports: Hx Asthma - SPORT INDUCED Denies: Hx Bronchitis, Hx COPD, Hx Pneumonia Neurological Medical History: Denies: Hx Cerebrovascular Accident, Hx Seizures Renal/ Medical History: Denies: Hx Peritoneal Dialysis Musculoskeltal Medical History: Denies Hx Arthritis Past Surgical History: Reports: Hx Gynecologic Surgery - d/c - Immunizations Hx Diphtheria, Pertussis, Tetanus Vaccination: - UNKNOWN Physical Exam - Vital signs Vitals: Temp Pulse Resp BP Pulse Ox 98.4 F 75 18 123/79 100 10/25/19 19:04 10/25/19 19:04 10/25/19 19:04 10/25/19 19:04 10/25/19 19:04 Course - Vital Signs Vital signs: Temp Pulse Resp BP Pulse Ox 98.4 F 75 18 123/79 100 10/25/19 19:04 10/25/19 19:04 10/25/19 19:04 10/25/19 19:04 10/25/19 19:04
[2019-10-25 20:26] LABS: ABSOLUTE EOSINOPHILS # (AUTO) 0.1 10^3/uL (0.0-0.6); ABSOLUTE LYMPHOCYTES (AUTO) 2.5 10^3/uL (0.5-4.7); ABSOLUTE MONOCYTES (AUTO) 0.5 10^3/uL (0.1-1.4); ABSOLUTE NEUT (AUTO) 5.9 10^3/uL (1.7-8.2); BASOPHILS % (AUTO) 0.6 % (0-2); EOSINOPHILS % (AUTO) 1.1 % (0-6); HEMATOCRIT 37.9 % (36.0-47.0); HEMOGLOBIN 13.1 g/dL (12.0-15.5); LYMPHOCYTES % (AUTO) 27.4 % (13-45); MEAN CORPUSCULAR HEMOGLOBIN 29.5 pg (27.0-33.4); MEAN CORPUSCULAR HGB CONC 34.5 g/dL (32.0-36.0); MEAN CORPUSCULAR VOLUME 86 fl (80-97); MONOCYTES % (AUTO) 5.6 % (3-13); PLATELET COUNT 273 10^3/uL (150-450); RED BLOOD COUNT 4.43 10^6/uL (3.72-5.28); RED CELL DISTRIBUTION WIDTH 16.2 % (11.5-14.0); SEGMENTED NEUTROPHILS % (AUTO) 65.3 % (42-78); TOTAL CELLS COUNTED % (AUTO) 100 %
[2019-10-25 20:44] LABS: APPEARANCE,URINE CLEAR; BILIRUBIN,URINE NEGATIVE (NEGATIVE); COLOR,URINE YELLOW; GLUCOSE, URINE NEGATIVE (NEGATIVE); KETONES,URINE NEGATIVE (NEGATIVE); LEUKOCYTE ESTERASE,URINE SMALL (NEGATIVE); NITRITE,URINE NEGATIVE (NEGATIVE); PROTEIN,URINE NEGATIVE (NEGATIVE); URINE SPECIFIC GRAVITY 1.011; UROBILINOGEN,URINE NEGATIVE mg/dL (<2.0)
[2019-10-25 20:53] LABS: ALBUMIN 4.5 g/dL (3.5-5.0); ALKALINE PHOSPHATASE 77 U/L (38-126); ANION GAP 10 (5-19); ASPARTATE AMINO TRANSFERASE 24 U/L (14-36); BILIRUBIN,TOTAL 0.2 mg/dL (0.2-1.3); BLOOD UREA NITROGEN 11 mg/dL (7-20); CALCIUM 9.6 mg/dL (8.4-10.2); CARBON DIOXIDE 23 mmol/L (22-30); CHLORIDE 103 mmol/L (98-107); GLUCOSE 93 mg/dL (75-110); POTASSIUM 4.5 mmol/L (3.6-5.0); TOTAL PROTEIN 7.8 g/dL (6.3-8.2)
--- NOTE | 2019-10-25 21:05 | ER Document Report ---
ED GI/ - General Chief Complaint: OB Problem (<20wks) Stated Complaint: RIGHT FLANK PAIN Time Seen by Provider: 10/25/19 19:10 Mode of Arrival: Ambulatory Notes: Patient is a 29-year-old female that comes emergency department for chief complaint of right-sided abdominal pain, pain is mainly in the mid to upper abdomen and wraps around towards her back. She has felt this for the past several days, intermittently sharp. She reports intermittent mild nausea but she states she had a positive home test and she is estimating she is about 8 weeks gestation by last menstrual period. She has not had an ultrasound confirming the yet. She denies lower abdominal pain, vaginal bleeding, vaginal discharge, dysuria, vomiting, fever. She reports her only past medical history is miscarriage last year with 2 D&Cs for retained products. She is G5, P3. She denies smoking, alcohol, or daily medications except vitamins. TRAVEL OUTSIDE OF THE [place] IN LAST 30 DAYS: No - Related Data Allergies/Adverse Reactions: diphenhydramine [From Benadryl] Allergy (Verified 02/25/19 06:33) nickel Allergy (Verified 02/25/19 06:33) Sulfa (Sulfonamide Antibiotics) Allergy (Verified 02/25/19 06:33) Home Medications: vitamins Past Medical History - General Information source: Patient - Social History Smoking Status: Never Smoker Frequency of alcohol use: None Drug Abuse: None Lives with: Family Family History: Reviewed & Not Pertinent Patient has homicidal ideation: No - Past Medical History Cardiac Medical History: Denies: Hx Coronary Artery Disease, Hx Heart Attack, Hx Hypertension Pulmonary Medical History: Reports: Hx Asthma - SPORT INDUCED Denies: Hx Bronchitis, Hx COPD, Hx Pneumonia Neurological Medical History: Denies: Hx Cerebrovascular Accident, Hx Seizures Renal/ Medical History: Denies: Hx Peritoneal Dialysis Musculoskeletal Medical History: Denies Hx Arthritis Past Surgical History: Reports: Hx Gynecologic Surgery - d/c - Immunizations Hx Diphtheria, Pertussis, Tetanus Vaccination: - UNKNOWN Review of Systems - Review of Systems Constitutional: No symptoms reported EENT: No symptoms reported Cardiovascular: No symptoms reported Respiratory: No symptoms reported Gastrointestinal: See HPI Genitourinary: See HPI Female Genitourinary: See HPI Musculoskeletal: No symptoms reported Skin: No symptoms reported Hematologic/Lymphatic: No symptoms reported Neurological/Psychological: No symptoms reported Physical Exam - Vital signs Vitals: Temp Pulse Resp BP Pulse Ox 98.4 F 75 18 123/79 100 10/25/19 19:04 10/25/19 19:04 10/25/19 19:04 10/25/19 19:04 10/25/19 19:04 - Notes Notes: GENERAL: Alert, interacts well. No acute distress. HEAD: Normocephalic, atraumatic. EYES: Pupils equal, round, and reactive to light. Extraocular movements intact. ENT: Oral mucosa moist, tongue midline. Oropharynx unremarkable. Airway patent. NECK: Full range of motion. Supple. Trachea midline. No lymphadenopathy. LUNGS: Clear to auscultation bilaterally, no wheezes, rales, or rhonchi. No res piratory distress. Non-tender chest wall. HEART: Regular rate and rhythm. No murmur ABDOMEN: Soft, non-tender. Non-distended. Bowel sounds present in all 4 quadrants. GENITOURINARY: Deferred EXTREMITIES: Moves all 4 extremities spontaneously. No edema, normal radial and dorsalis pedis pulses bilaterally. No cyanosis. BACK: no cervical, thoracic, lumbar midline tenderness. No saddle anesthesia, no rmal distal neurovascular exam. Moves all extremities in full range of motion. NEUROLOGICAL: Alert and oriented x3. Normal speech. Cranial nerves II through XII grossly intact. Strength 5/5 in all extremities. PSYCH: Normal affect, normal mood. SKIN: Warm, dry, normal turgor. No rashes or lesions noted. Course - Re-evaluation Re-evalutation: On exam patient is very well-appearing, conversational, no signs of distress. Abdomen is soft and benign on my exam. No CVA tenderness. Unremarkable vital signs. CBC unremarkable, chemistry unremarkable, hormone elevated as expected, lipase unremarkable. Urinalysis shows possible infection and was cultured. Patient will be treated for this especially in the setting of early . Abdominal ultrasound with no acute findings. Transvaginal ultrasound shows a living intrauterine at 6 weeks and 3 days with heartbeat, also shows moose-gestational hemorrhage. Patient has been here for an extended period of time, there was a delay in the ultrasound is being read, she is requesting to leave. They did not get RhoGam testing in triage, however we do have a record of her being O+ in the system and patient confirms this verbally. Patient was therefore not given RhoGam. Discussed pelvic rest, CLOTH SHRINKING MACHINE OPERATOR follow-up, return precautions. Patient states understanding and agreement. Stable and well- appearing at time of discharge. - Vital Signs Vital signs: Temp Pulse Resp BP Pulse Ox 98.1 F 69 15 93/55 L 100 10/26/19 01:01 10/26/19 01:01 10/26/19 01:01 10/26/19 01:01 10/26/19 01:01 - Laboratory Result Diagrams: 10/25/19 20:10 10/25/19 20:10 Laboratory results interpreted by me: 10/25/19 10/25/19 10/25/19 20:10 20:10 20:10 RDW 16.2 H Sodium 135.9 L Beta HCG, Quant 87705.00 H Urine Blood SMALL H Ur Leukocyte Esterase SMALL H Discharge - Discharge Clinical Impression: Abdominal cramping affecting Condition: Stable Disposition: HOME, SELF-CARE Additional Instructions: The ultrasound shows a in the uterus at 6 weeks and 3 days. The ultrasound of your gallbladder and upper abdomen did not show any concerning findings. You do have a subchorionic bleed as we discussed, it is important that you perform pelvic rest (avoid any significant physical activity including lifting, jumping, sexual intercourse, etc. until cleared by CLOTH SHRINKING MACHINE OPERATOR. We are also treating you for a urinary tract infection. Take antibiotics as prescribed to completion. Take Tylenol if needed for pain. Take nausea medication if needed. Follow-up closely with CLOTH SHRINKING MACHINE OPERATOR. Return if you worsen including severe worsening pain, uncontrolled vomiting, developing fevers, or any other concerning symptoms. Prescriptions: Cephalexin Monohydrate [Keflex 500 mg Capsule] 500 mg PO BID 7 Days #14 capsule Metoclopramide HCl [Reglan] 5 mg PO ASDIR PRN #30 tablet PRN Reason:
--- NOTE | 2019-10-25 23:36 | RADIOLOGY REPORT (SQ) ---
EXAM DESCRIPTION: US TRANSVAGINAL COMPLETED DATE/TME: 10/25/2019 19:18 CLINICAL HISTORY: 29 years Female, last menstrual period August 26 LMP 08/27/2019 COMPARISON: None. TECHNIQUE: Complete first trimester obstetrical ultrasound obtained with transvaginal and transabdominal imaging. FINDINGS: Uterus: The uterus measures 10.6 x 5.9 x 7.5 cm. No myometrial abnormalities. Gestational sac: Gestational sac identified with a mean sac diameter of 2.16 cm. Hypoechoic area adjacent to the gestational sac measuring 4.1 cm in greatest dimension. pole: pole identified with a crown-rump length of 0.58 cm. heart motion: heart rate of 126 bpm. Yolk sac: Normal appearing yolk sac. Placenta: Not well evaluated due to early gestational age. Right ovary: The right ovary measures 3.7 x 2.7 x 2.4 cm. 2.5 cm right ovarian cyst. No follow-up imaging recommended. Left ovary: The left ovary measures 3.5 x 2.4 x 1.6 cm. Adnexa: No large adnexal masses. Free fluid: No free pelvic fluid. Color Doppler imaging of the ovaries demonstrates blood flow. Axial imaging was not performed. IMPRESSION: 1. Single live intrauterine with estimated gestational age of 6 weeks, 3 days. heart rate of 126 bpm. 2. Small subchorionic hemorrhage measuring 4.1 cm. Continued obstetrical follow-up recommended.
--- NOTE | 2019-10-26 00:34 | RADIOLOGY REPORT (SQ) ---
EXAM DESCRIPTION: US ABDOMEN LIMITED COMPLETED DATE/TME: 10/25/2019 19:18 CLINICAL HISTORY: Right upper quadrant abdominal pain COMPARISON: None. TECHNIQUE: Real-time sonographic images of the right upper abdomen were obtained using a curved multihertz transducer. FINDINGS: Pancreas: The visualized portions of the pancreas are unremarkable. Vascular: The visualized portions of the aorta and IVC are unremarkable. Liver: The liver has normal contour and echogenicity. Hepatopedal flow in the portal vein. Findings confirmed with color and spectral Doppler imaging. The common bile duct measures 0.2 cm. Gallbladder: The gallbladder has a normal appearance. No gallstones identified. No wall thickening or pericholecystic fluid. Right Kidney: The right kidney measures 11.0 cm in length. No hydronephrosis, solid renal mass, or shadowing calculi. IMPRESSION: 1. No acute abnormality identified in the right upper abdomen.
[2019-10-26 01:02] VITALS: BP 93/55
== END 2019-10-26 01:02 | disposition home or self-care (01) ==
LOC: ER 19:00
DX: O26.891 Other specified pregnancy related conditions, first trimester (principal); R10.9 Unspecified abdominal pain; R10.11 Right upper quadrant pain; R11.0 Nausea; O20.8 Other hemorrhage in early pregnancy; O99.511 Diseases of the respiratory system complicating pregnancy, first trimester; J45.909 Unspecified asthma, uncomplicated; Z79.899 Other long term (current) drug therapy; Z3A.01 Less than 8 weeks gestation of pregnancy; Z88.8 Allergy status to other drugs, medicaments and biological substances; Z91.048 Other nonmedicinal substance allergy status; Z88.2 Allergy status to sulfonamides
CPT/HCPCS: 36415; 76705; 76817; 80053; 81001; 83690; 84702; 85025; 87086; 99284